=== PATIENT | female | born 1980 | race Caucasian/White ===

== ENCOUNTER 2016-07-23 22:00 | Emergency (ER) | payer BC, OTHER ==
[~2016-07-23] VITALS: Ht 165.1 cm; Wt 68.0 kg
[2016-07-23 22:03] VITALS: Ht 165.1 cm; Wt 68.0 kg
[2016-07-23] MEDS ORDERED: HYDROCODONE/APAP (10/325) TAB PO ONE (22:30)
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
[2016-07-23] MEDS ORDERED: HYDR-902 PO (23:30)
[2016-07-23] MEDS ORDERED: IBUP-1542 PO (23:30)
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
[2016-07-24 00:51] VITALS: BP 132/81; PULSE 66; RESP 18; TEMP 98.1
== END 2016-07-24 00:52 | disposition home or self-care (01) ==
LOC: FTE 22:00
DX: S20.212A Contusion of left front wall of thorax, initial encounter (principal); S40.012A Contusion of left shoulder, initial encounter; S16.1XXA Strain of muscle, fascia and tendon at neck level, initial encounter; S09.90XA Unspecified injury of head, initial encounter; S39.92XA Unspecified injury of lower back, initial encounter; V49.40XA Driver injured in collision with unspecified motor vehicles in traffic accident, initial encounter
CPT/HCPCS: 70450; 71100; 72020; 72100; 72125; 73030